=== PATIENT | male | born 1955 | race Two or more races ===

== ENCOUNTER 2019-09-13 13:38 | Inpatient (IN) | payer MEDICARE, MEDICAID ==
[~2019-09-13] VITALS: Ht 157.5 cm; Wt 81.2 kg
[2019-09-13] MEDS ORDERED: TAMS-13 PO (14:31)
[2019-09-13] MEDS ORDERED: LINA5TAB PO (14:31)
[2019-09-13] MEDS ORDERED: FURO40 PO (14:31)
[2019-09-13] MEDS ORDERED: TERA1CAP7 PO (14:31)
[2019-09-13] MEDS ORDERED: CALC30CA PO (14:31)
[2019-09-13] MEDS ORDERED: ATEN-188 PO (14:31)
[2019-09-13] MEDS ORDERED: AZIL40TA PO (14:31)
[2019-09-13] MEDS ORDERED: NITR0.4T50 SL (14:31)
[2019-09-13] MEDS ORDERED: GABA-531 PO (14:31)
[2019-09-13] MEDS ORDERED: NIFE60TA85 PO (14:31)
[2019-09-13] MEDS ORDERED: ASPI81TA39 PO (14:31)
[2019-09-13 14:52] LABS: GLUCOSE,POINT OF CARE 78 MG/DL (70-110)
[2019-09-13 15:04] LABS: BASOPHILS % (AUTO) 0.4 % (0.0-2.0); EOSINOPHILS % (AUTO) 4.1 % (1.0-6.0); HEMATOCRIT 32.9 % (41-53); HEMOGLOBIN 10.7 g/dL (13.5-17.5); LYMPHOCYTES # (AUTO) 1.4 K/uL (1.0-4.8); LYMPHOCYTES % (AUTO) 21.6 % (22.0-44.0); MEAN CORPUSCULAR HEMOGLOBIN 27.9 pg (26.0-34.0); MEAN CORPUSCULAR HGB CONC 32.6 G/dL (31.0-37.0); MEAN CORPUSCULAR VOLUME 86 fL (80-100); MONOCYTES # (AUTO) 0.5 K/uL (0.1-1.0); MONOCYTES % (AUTO) 8.3 % (2.0-9.0); NEUTROPHILS # (AUTO) 4.2 K/uL (1.8-7.7); NEUTROPHILS % (AUTO) 65.6 % (40.0-70.0); PLATELET COUNT (AUTO) 164 K/uL (150-450); RED BLOOD CELL COUNT(AUTO) 3.83 MIL/uL (4.50-5.90); RED CELL DISTRIBUTION WIDTH 14.7 % (11.5-14.5)
[2019-09-13 15:16] LABS: PROTHROMBIN TIME 9.8 SEC (9.4-11.6)
[2019-09-13 15:40] LABS: ALBUMIN 2.8 g/dL (3.4-5.0); BILIRUBIN,TOTAL 0.1 mg/dL (0.1-1.0); CALCIUM, TOTAL 8.7 mg/dL (8.8-10.5); CREATININE 6.16 mg/dL (0.60-1.30); POTASSIUM 4.8 mmol/L (3.5-5.1); TOTAL PROTEIN, SERUM 6.6 g/dL (6.4-8.2)
[2019-09-13] MEDS ORDERED: ACETAMINOPHEN 325 MG TABLET PO PRN (17:45)
[2019-09-13] MEDS ORDERED: ONDANSETRON HCL 4 MG/2 ML VIAL IVP PRN (17:45)
[2019-09-13] MEDS ORDERED: 0.9% SODIUM CHLORIDE 10 ML SYRINGE IVP PRN (17:45)
[2019-09-13 18:36] VITALS: BP 137/76
[2019-09-13 19:30] VITALS: BP 139/67
[2019-09-13] MEDS ORDERED: MAGNESIUM HYDROXIDE SUSPENSION 30 ML UDCUP PO PRN (20:00)
[2019-09-13] MEDS ORDERED: BISACODYL 10 MG RECTAL RECTAL SUPPOSITORY PR PRN (20:00)
[2019-09-13] MEDS: CITRIC ACID/SODIUM CITRATE 30 ML SOLUTION UDCUP PO SCH (20:25)
[2019-09-13] MEDS: DOCUSATE SODIUM 100 MG CAPSULE PO SCH (20:25)
[2019-09-13] MEDS ORDERED: INFLUENZA VIRUS VACCINE QVS 2019-20 (3YR+)/PF 60 MCG/0.5 ML SYRINGE IM ONE (23:00)
[2019-09-13] MEDS ORDERED: PNEUMOCOCCAL VACCINE POLYVALENT 0.5 ML VIAL [PPSV23] IM ONE (23:00)
[2019-09-14] VITALS (7 sets, daily range): BP systolic 103–158; BP diastolic 55–84
[2019-09-14] MEDS: HEPARIN SODIUM,PORCINE 5,000 UNITS/ML VIAL SQ SCH ×3 (00:13→15:30)
[2019-09-14 03:06] LABS: GLUCOMETER DEV NAME(LOC) 5N.1; GLUCOSE,POINT OF CARE 154 MG/DL (70-110)
[2019-09-14 07:09] LABS: HEMATOCRIT 34.1 % (41-53); HEMOGLOBIN 11.3 g/dL (13.5-17.5); MEAN CORPUSCULAR HEMOGLOBIN 28.1 pg (26.0-34.0); MEAN CORPUSCULAR VOLUME 85 fL (80-100); PLATELET COUNT (AUTO) 178 K/uL (150-450); RED BLOOD CELL COUNT(AUTO) 4.02 MIL/uL (4.50-5.90); RED CELL DISTRIBUTION WIDTH 14.4 % (11.5-14.5)
[2019-09-14 07:44] LABS: % IRON SATURATION 28.9 % (30-44)
[2019-09-14 07:45] LABS: ALBUMIN 2.8 g/dL (3.4-5.0); BILIRUBIN,TOTAL 0.2 mg/dL (0.1-1.0); CALCIUM, TOTAL 8.9 mg/dL (8.8-10.5); CREATININE 5.78 mg/dL (0.60-1.30); POTASSIUM 4.4 mmol/L (3.5-5.1); TOTAL PROTEIN, SERUM 6.8 g/dL (6.4-8.2)
[2019-09-14] MEDS: ASPIRIN 81 MG CHEWABLE TABLET PO SCH (08:03)
[2019-09-14] MEDS: FUROSEMIDE 40 MG TABLET PO SCH (08:04)
[2019-09-14] MEDS: NIFEdipine 60 MG ER TABLET PO SCH (08:04)
[2019-09-14] MEDS: PANTOPRAZOLE SODIUM 40 MG DR TABLET PO SCH (08:04)
[2019-09-14] MEDS: TAMSULOSIN HCL 0.4 MG CAPSULE PO SCH (08:04)
[2019-09-14] MEDS: ATENOLOL 100 MG TABLET PO SCH (08:04)
[2019-09-14] MEDS: GABAPENTIN 300 MG CAPSULE PO SCH (08:04)
[2019-09-14] MEDS: CITRIC ACID/SODIUM CITRATE 30 ML SOLUTION UDCUP PO SCH ×2 (08:04→20:21)
[2019-09-14] MEDS: DOCUSATE SODIUM 100 MG CAPSULE PO SCH ×2 (08:08→20:23)
[2019-09-14 08:22] LABS: BAND NEUTROPHILS % (MANUAL) 3 % (0-5); EOSINOPHILS % (MANUAL) 2 % (1-6); LYMPHOCYTES % (MANUAL) 37 % (22-44); MONOCYTES % (MANUAL) 2 % (2-9); SEGMENTED NEUTROPHILS % 56 % (40-70)
[2019-09-14] MEDS ORDERED: LinaGLIPtin 5 MG TABLET PO SCH (09:00)
[2019-09-14] MEDS: HYDROCODONE/ACETAMINOPHEN 5-325 MG TABLET PO PRN (20:22)
[2019-09-15] MEDS: HEPARIN SODIUM,PORCINE 5,000 UNITS/ML VIAL SQ SCH ×4 (00:46→23:22)
[2019-09-15] MEDS: ZOLPIDEM TARTRATE 5 MG TABLET PO PRN ×2 (00:46→21:03)
[2019-09-15 04:20] VITALS: BP 125/63
[2019-09-15 06:52] LABS: BASOPHILS % (AUTO) 0.6 % (0.0-2.0); EOSINOPHILS % (AUTO) 7.5 % (1.0-6.0); HEMOGLOBIN 11.1 g/dL (13.5-17.5); LYMPHOCYTES % (AUTO) 30.8 % (22.0-44.0); MEAN CORPUSCULAR HEMOGLOBIN 28.5 pg (26.0-34.0); MEAN CORPUSCULAR HGB CONC 33.5 G/dL (31.0-37.0); MEAN CORPUSCULAR VOLUME 85 fL (80-100); MONOCYTES # (AUTO) 0.6 K/uL (0.1-1.0); NEUTROPHILS # (AUTO) 3.3 K/uL (1.8-7.7); NEUTROPHILS % (AUTO) 51.1 % (40.0-70.0); PLATELET COUNT (AUTO) 166 K/uL (150-450); RED BLOOD CELL COUNT(AUTO) 3.88 MIL/uL (4.50-5.90); RED CELL DISTRIBUTION WIDTH 14.6 % (11.5-14.5)
[2019-09-15 07:14] LABS: CALCIUM, TOTAL 8.4 mg/dL (8.8-10.5); CREATININE 5.6 mg/dL (0.60-1.30); POTASSIUM 4.4 mmol/L (3.5-5.1)
[2019-09-15 07:26] VITALS: BP 136/74
[2019-09-15 07:45] LABS: MAGNESIUM 2.4 mg/dL (1.80-2.40); PHOSPHORUS 6.3 mg/dL (2.5-4.9)
[2019-09-15] MEDS: NIFEdipine 60 MG ER TABLET PO SCH (09:04)
[2019-09-15] MEDS: FUROSEMIDE 40 MG TABLET PO SCH (09:04)
[2019-09-15] MEDS: PANTOPRAZOLE SODIUM 40 MG DR TABLET PO SCH (09:04)
[2019-09-15] MEDS: TAMSULOSIN HCL 0.4 MG CAPSULE PO SCH (09:04)
[2019-09-15] MEDS: GABAPENTIN 300 MG CAPSULE PO SCH (09:04)
[2019-09-15] MEDS: CITRIC ACID/SODIUM CITRATE 30 ML SOLUTION UDCUP PO SCH ×2 (09:04→21:02)
[2019-09-15] MEDS: ATENOLOL 100 MG TABLET PO SCH (09:04)
[2019-09-15] MEDS: DOCUSATE SODIUM 100 MG CAPSULE PO SCH ×2 (09:04→21:00)
[2019-09-15] MEDS: ASPIRIN 81 MG CHEWABLE TABLET PO SCH (09:04)
[2019-09-15] MEDS: HYDROCODONE/ACETAMINOPHEN 5-325 MG TABLET PO PRN ×2 (12:12→21:03)
[2019-09-15] MEDS: CALCIUM ACETATE 667 MG CAPSULE PO SCH ×2 (12:12→18:16)
[2019-09-15 12:49] VITALS: BP 130/69
[2019-09-15 15:24] LABS: GLUCOMETER DEV NAME(LOC) 5S.1; GLUCOSE,POINT OF CARE 126 MG/DL (70-110)
[2019-09-15 20:32] VITALS: BP 119/71
[2019-09-15 23:32] LABS: GLUCOMETER DEV NAME(LOC) 5N.1; GLUCOSE,POINT OF CARE 181 MG/DL (70-110)
[2019-09-16] VITALS (12 sets, daily range): BP systolic 93–168; BP diastolic 38–71
[2019-09-16 07:21] LABS: BASOPHILS % (AUTO) 0.5 % (0.0-2.0); EOSINOPHILS % (AUTO) 7.2 % (1.0-6.0); HEMATOCRIT 29.8 % (41-53); HEMOGLOBIN 10.2 g/dL (13.5-17.5); LYMPHOCYTES # (AUTO) 1.7 K/uL (1.0-4.8); LYMPHOCYTES % (AUTO) 26.8 % (22.0-44.0); MEAN CORPUSCULAR HGB CONC 34.2 G/dL (31.0-37.0); MEAN CORPUSCULAR VOLUME 85 fL (80-100); MONOCYTES # (AUTO) 0.6 K/uL (0.1-1.0); MONOCYTES % (AUTO) 9.4 % (2.0-9.0); NEUTROPHILS # (AUTO) 3.6 K/uL (1.8-7.7); NEUTROPHILS % (AUTO) 56.1 % (40.0-70.0); PLATELET COUNT (AUTO) 155 K/uL (150-450); RED BLOOD CELL COUNT(AUTO) 3.51 MIL/uL (4.50-5.90); RED CELL DISTRIBUTION WIDTH 14.5 % (11.5-14.5)
[2019-09-16 07:32] LABS: CALCIUM, TOTAL 7.9 mg/dL (8.8-10.5); CREATININE 5.76 mg/dL (0.60-1.30); POTASSIUM 4.4 mmol/L (3.5-5.1)
[2019-09-16] MEDS: ASPIRIN 81 MG CHEWABLE TABLET PO SCH (07:59)
[2019-09-16] MEDS: HEPARIN SODIUM,PORCINE 5,000 UNITS/ML VIAL SQ SCH ×2 (07:59→13:00)
[2019-09-16] MEDS: CALCIUM ACETATE 667 MG CAPSULE PO SCH ×3 (08:00→18:00)
[2019-09-16] MEDS: DOCUSATE SODIUM 100 MG CAPSULE PO SCH ×2 (08:00→21:00)
[2019-09-16] MEDS: PANTOPRAZOLE SODIUM 40 MG DR TABLET PO SCH (08:07)
[2019-09-16] MEDS: GABAPENTIN 300 MG CAPSULE PO SCH (08:07)
[2019-09-16] MEDS: TAMSULOSIN HCL 0.4 MG CAPSULE PO SCH (08:07)
[2019-09-16] MEDS: NIFEdipine 60 MG ER TABLET PO SCH (08:07)
[2019-09-16] MEDS: FUROSEMIDE 40 MG TABLET PO SCH (08:07)
[2019-09-16] MEDS: ATENOLOL 100 MG TABLET PO SCH (08:07)
[2019-09-16] MEDS: CITRIC ACID/SODIUM CITRATE 30 ML SOLUTION UDCUP PO SCH ×2 (08:07→21:47)
[2019-09-16] MEDS ORDERED: MIDAZOLAM HCL 2 MG/2 ML VIAL ONE (10:10)
[2019-09-16] MEDS ORDERED: NALOXONE HCL 0.4 MG/ML VIAL ONE (10:10)
[2019-09-16] MEDS ORDERED: FentaNYL CITRATE-PF 100 MCG/2 ML VIAL ONE (10:10)
[2019-09-16] MEDS ORDERED: LIDOCAINE 1%/EPI 1:200,000/PF 10 ML VIAL ONE (10:11)
[2019-09-16] MEDS ORDERED: HEPARIN SODIUM,PORCINE 1,000 UNITS/ML 10 ML VIAL ONE (10:11)
[2019-09-16] MEDS ORDERED: FLUMAZENIL 0.1 MG/ML 5 ML VIAL IVP ONE (10:11)
[2019-09-16] MEDS ORDERED: HEPARIN SODIUM 1000 UNITS/NS 500 ML ONE (10:11)
[2019-09-16] MEDS ORDERED: SODIUM CHLORIDE 0.9% 250 ML IV ONE ×2 (11:00→16:50)
[2019-09-16] MEDS ORDERED: FentaNYL CITRATE-PF 100 MCG/2 ML VIAL IVP ONE (11:05)
[2019-09-16] MEDS ORDERED: MIDAZOLAM HCL 2 MG/2 ML VIAL IVP ONE (11:06)
[2019-09-16] MEDS: HYDROCODONE/ACETAMINOPHEN 5-325 MG TABLET PO PRN (12:28)
[2019-09-16 14:13] LABS: GLUCOMETER DEV NAME(LOC) 5S.1; GLUCOSE,POINT OF CARE 131 MG/DL (70-110)
[2019-09-16] MEDS ORDERED: SODIUM CHLORIDE 0.9% 1,000 ML ONE (14:48)
[2019-09-16] MEDS ORDERED: SODIUM CHLORIDE 0.9% 1,000 ML IV ONE (15:20)
[2019-09-16] MEDS ORDERED: LIDOCAINE/PF 1% 30 ML VIAL ONE (16:31)
[2019-09-16] MEDS ORDERED: SODIUM CHLORIDE 0.9% 10 ML ONE (16:31)
[2019-09-16] MEDS ORDERED: HEPARIN SODIUM,PORCINE 5,000 UNITS/ML VIAL ONE (16:49)
[2019-09-16] MEDS ORDERED: PROPOFOL 1000 MG/ISO-OSM 100 ML IV ONE (17:01)
[2019-09-16] MEDS ORDERED: HEPARIN SODIUM,PORCINE 1,000 UNITS/ML VIAL IVP ONE ×3 (17:26→22:00)
[2019-09-16 19:07] LABS: GLUCOMETER DEV NAME(LOC) 5N.1; GLUCOSE,POINT OF CARE 122 MG/DL (70-110)
[2019-09-17 00:18] VITALS: BP 137/78
[2019-09-17] MEDS: HEPARIN SODIUM,PORCINE 5,000 UNITS/ML VIAL SQ SCH ×3 (00:18→16:04)
[2019-09-17] MEDS: MORPHINE SULFATE 2 MG/ML SYRINGE IVP PRN ×4 (00:28→18:13)
[2019-09-17 01:52] LABS: GLUCOMETER DEV NAME(LOC) 5S.1; GLUCOSE,POINT OF CARE 144 MG/DL (70-110)
[2019-09-17 04:20] VITALS: BP 157/82
[2019-09-17] MEDS ORDERED: FentaNYL CITRATE-PF 100 MCG/2 ML VIAL IVP ONE (05:19)
[2019-09-17] MEDS ORDERED: MIDAZOLAM HCL 2 MG/2 ML VIAL IVP ONE (05:19)
[2019-09-17] MEDS ORDERED: HEPARIN SODIUM,PORCINE 1,000 UNITS/ML 10 ML VIAL IVP ONE (05:19)
[2019-09-17 07:10] VITALS: BP 109/61
[2019-09-17 07:26] LABS: BASOPHILS % (AUTO) 0.4 % (0.0-2.0); EOSINOPHILS % (AUTO) 5.3 % (1.0-6.0); HEMATOCRIT 33.9 % (41-53); HEMOGLOBIN 11.2 g/dL (13.5-17.5); LYMPHOCYTES # (AUTO) 1.1 K/uL (1.0-4.8); LYMPHOCYTES % (AUTO) 13.8 % (22.0-44.0); MEAN CORPUSCULAR HEMOGLOBIN 27.8 pg (26.0-34.0); MEAN CORPUSCULAR HGB CONC 32.9 G/dL (31.0-37.0); MEAN CORPUSCULAR VOLUME 85 fL (80-100); MONOCYTES # (AUTO) 0.7 K/uL (0.1-1.0); MONOCYTES % (AUTO) 8.9 % (2.0-9.0); NEUTROPHILS # (AUTO) 5.6 K/uL (1.8-7.7); NEUTROPHILS % (AUTO) 71.6 % (40.0-70.0); PLATELET COUNT (AUTO) 158 K/uL (150-450); RED BLOOD CELL COUNT(AUTO) 4.01 MIL/uL (4.50-5.90); RED CELL DISTRIBUTION WIDTH 14.9 % (11.5-14.5)
[2019-09-17 07:41] LABS: CALCIUM, TOTAL 7.7 mg/dL (8.8-10.5); CREATININE 4.56 mg/dL (0.60-1.30); POTASSIUM 4.5 mmol/L (3.5-5.1)
[2019-09-17] MEDS ORDERED: HYDROCODONE/ACETAMINOPHEN 10-325 MG TABLET PO PRN (08:00)
[2019-09-17] MEDS: ONDANSETRON HCL 4 MG/2 ML VIAL IVP PRN ×2 (08:13→18:12)
[2019-09-17] MEDS: CALCIUM ACETATE 667 MG CAPSULE PO SCH ×3 (09:05→18:13)
[2019-09-17] MEDS: CITRIC ACID/SODIUM CITRATE 30 ML SOLUTION UDCUP PO SCH (09:05)
[2019-09-17] MEDS: TAMSULOSIN HCL 0.4 MG CAPSULE PO SCH (09:05)
[2019-09-17] MEDS: PANTOPRAZOLE SODIUM 40 MG DR TABLET PO SCH (09:05)
[2019-09-17] MEDS: GABAPENTIN 300 MG CAPSULE PO SCH (09:05)
[2019-09-17] MEDS: DOCUSATE SODIUM 100 MG CAPSULE PO SCH (09:06)
[2019-09-17] MEDS: ATENOLOL 100 MG TABLET PO SCH (09:06)
[2019-09-17] MEDS: ASPIRIN 81 MG CHEWABLE TABLET PO SCH (09:06)
[2019-09-17] MEDS: FUROSEMIDE 40 MG TABLET PO SCH (09:06)
[2019-09-17] MEDS: NIFEdipine 60 MG ER TABLET PO SCH (09:06)
[2019-09-17 10:47] VITALS: BP 135/72
[2019-09-17 12:11] LABS: GLUCOMETER DEV NAME(LOC) 5N.1; GLUCOSE,POINT OF CARE 168 MG/DL (70-110)
[2019-09-17 15:11] VITALS: BP 101/57
[2019-09-18] VITALS (7 sets, daily range): BP systolic 115–151; BP diastolic 60–74
[2019-09-18] MEDS: HEPARIN SODIUM,PORCINE 5,000 UNITS/ML VIAL SQ SCH ×3 (00:23→21:00)
[2019-09-18] MEDS: DOCUSATE SODIUM 100 MG CAPSULE PO SCH ×3 (00:23→21:12)
[2019-09-18 00:25] LABS: GLUCOMETER DEV NAME(LOC) 5S.1; GLUCOSE,POINT OF CARE 109 MG/DL (70-110)
[2019-09-18] MEDS: PANTOPRAZOLE SODIUM 40 MG DR TABLET PO SCH (08:51)
[2019-09-18] MEDS: ACETAMINOPHEN 325 MG TABLET PO PRN ×2 (08:51→13:46)
[2019-09-18] MEDS: FUROSEMIDE 40 MG TABLET PO SCH (08:52)
[2019-09-18] MEDS: TAMSULOSIN HCL 0.4 MG CAPSULE PO SCH (08:52)
[2019-09-18] MEDS: ASPIRIN 81 MG CHEWABLE TABLET PO SCH (08:52)
[2019-09-18] MEDS: GABAPENTIN 300 MG CAPSULE PO SCH (08:52)
[2019-09-18] MEDS: CALCIUM ACETATE 667 MG CAPSULE PO SCH ×3 (08:52→18:00)
[2019-09-18 09:06] LABS: ALBUMIN 2.6 g/dL (3.4-5.0); BILIRUBIN,TOTAL 0.3 mg/dL (0.1-1.0); CALCIUM, TOTAL 8.3 mg/dL (8.8-10.5); CREATININE 3.57 mg/dL (0.60-1.30); POTASSIUM 4.3 mmol/L (3.5-5.1); TOTAL PROTEIN, SERUM 6.8 g/dL (6.4-8.2)
[2019-09-18] MEDS: ATENOLOL 100 MG TABLET PO SCH (11:04)
[2019-09-18] MEDS: NIFEdipine 60 MG ER TABLET PO SCH (11:04)
[2019-09-18 12:21] LABS: GLUCOMETER DEV NAME(LOC) 5N.1; GLUCOSE,POINT OF CARE 169 MG/DL (70-110)
[2019-09-18] MEDS ORDERED: DiphenhydrAMINE HCL 50 MG/ML VIAL IVP PRN (18:00)
[2019-09-18] MEDS ORDERED: HEPARIN SODIUM,PORCINE 1,000 UNITS/ML VIAL IVP ONE ×3 (18:00→18:21)
[2019-09-19] VITALS (7 sets, daily range): BP systolic 106–135; BP diastolic 50–69
[2019-09-19] MEDS: ACETAMINOPHEN 325 MG TABLET PO PRN ×3 (03:22→20:40)
[2019-09-19] MEDS: FUROSEMIDE 40 MG TABLET PO SCH (08:55)
[2019-09-19] MEDS: ATENOLOL 100 MG TABLET PO SCH (08:55)
[2019-09-19] MEDS: PANTOPRAZOLE SODIUM 40 MG DR TABLET PO SCH (08:55)
[2019-09-19] MEDS: CALCIUM ACETATE 667 MG CAPSULE PO SCH ×3 (08:55→18:19)
[2019-09-19] MEDS: TAMSULOSIN HCL 0.4 MG CAPSULE PO SCH (08:55)
[2019-09-19] MEDS: NIFEdipine 60 MG ER TABLET PO SCH (08:56)
[2019-09-19] MEDS: ASPIRIN 81 MG CHEWABLE TABLET PO SCH (08:56)
[2019-09-19] MEDS: HEPARIN SODIUM,PORCINE 5,000 UNITS/ML VIAL SQ SCH ×2 (08:57→20:33)
[2019-09-19] MEDS: DOCUSATE SODIUM 100 MG CAPSULE PO SCH ×2 (09:00→20:33)
[2019-09-19 09:01] LABS: GLUCOMETER DEV NAME(LOC) 5N.1; GLUCOSE,POINT OF CARE 177 MG/DL (70-110)
[2019-09-19] MEDS ORDERED: REGADENOSON 0.4 MG/5 ML PF SYRINGE IVP ONE ×2 (10:05→15:39)
[2019-09-19] MEDS ORDERED: SESTAMIBI TC99M/UD ISOTOPE 1 EA INJ INJ ONE ×2 (10:05→12:15)
[2019-09-19] MEDS ORDERED: LIDOCAINE/PF 1% 5 ML VIAL ONE (14:38)
[2019-09-19 15:01] LABS: GLUCOMETER DEV NAME(LOC) 5N.1; GLUCOSE,POINT OF CARE 198 MG/DL (70-110)
[2019-09-19] MEDS ORDERED: DiphenhydrAMINE HCL 50 MG/ML VIAL IM ONE (18:26)
[2019-09-19] MEDS ORDERED: HEPARIN SODIUM,PORCINE 1,000 UNITS/ML VIAL IVP ONE (18:26)
[2019-09-20 00:04] VITALS: BP 105/52
[2019-09-20] MEDS: ACETAMINOPHEN 325 MG TABLET PO PRN (01:59)
[2019-09-20 03:02] LABS: GLUCOMETER DEV NAME(LOC) 5S.1; GLUCOSE,POINT OF CARE 153 MG/DL (70-110)
[2019-09-20 05:08] VITALS: BP 114/60
[2019-09-20 07:34] VITALS: BP 121/69
[2019-09-20] MEDS: TAMSULOSIN HCL 0.4 MG CAPSULE PO SCH (08:59)
[2019-09-20] MEDS: PANTOPRAZOLE SODIUM 40 MG DR TABLET PO SCH (08:59)
[2019-09-20] MEDS: NIFEdipine 60 MG ER TABLET PO SCH (08:59)
[2019-09-20] MEDS: CALCIUM ACETATE 667 MG CAPSULE PO SCH ×2 (08:59→12:00)
[2019-09-20] MEDS: FUROSEMIDE 40 MG TABLET PO SCH (08:59)
[2019-09-20] MEDS: HEPARIN SODIUM,PORCINE 5,000 UNITS/ML VIAL SQ SCH (08:59)
[2019-09-20] MEDS: DOCUSATE SODIUM 100 MG CAPSULE PO SCH (08:59)
[2019-09-20] MEDS: ATENOLOL 100 MG TABLET PO SCH (08:59)
[2019-09-20] MEDS: ASPIRIN 81 MG CHEWABLE TABLET PO SCH (08:59)
[2019-09-20 11:09] VITALS: BP 134/75
[2019-09-20] MEDS ORDERED: HEPARIN SODIUM,PORCINE 1,000 UNITS/ML VIAL IVP ONE ×3 (14:30→15:39)
[2019-09-21 04:01] LABS: GLUCOMETER DEV NAME(LOC) 5N.1; GLUCOSE,POINT OF CARE 168 MG/DL (70-110)
== END 2019-09-20 15:40 | disposition home or self-care (01) | DRG 264 ==
LOC: EMS 13:39 → 5N 17:44
PROVIDERS: ADMIT Internal Medicine; ATTEND Internal Medicine
PROC: 0JH63XZ Insertion of Tunneled Vascular Access Device into Chest Subcutaneous Tissue and Fascia, Percutaneous Approach (ICD-10-PCS; 2019-09-16)
PROC: 02HV33Z Insertion of Infusion Device into Superior Vena Cava, Percutaneous Approach (ICD-10-PCS; 2019-09-16)
PROC: B5181ZA Fluoroscopy of Superior Vena Cava using Low Osmolar Contrast, Guidance (ICD-10-PCS; 2019-09-16)
PROC: B548ZZA Ultrasonography of Superior Vena Cava, Guidance (ICD-10-PCS; 2019-09-16)
PROC: 5A1D70Z Performance of Urinary Filtration, Intermittent, Less than 6 Hours Per Day (ICD-10-PCS; 2019-09-16)
PROC: 03180JD Bypass Left Brachial Artery to Upper Arm Vein with Synthetic Substitute, Open Approach (ICD-10-PCS; principal; 2019-09-16 16:00)
PROC: 5A1D70Z Performance of Urinary Filtration, Intermittent, Less than 6 Hours Per Day (ICD-10-PCS; 2019-09-17)
PROC: 5A1D70Z Performance of Urinary Filtration, Intermittent, Less than 6 Hours Per Day (ICD-10-PCS; 2019-09-18)
PROC: 5A1D70Z Performance of Urinary Filtration, Intermittent, Less than 6 Hours Per Day (ICD-10-PCS; 2019-09-20)
DX: I13.2 Hypertensive heart and chronic kidney disease with heart failure and with stage 5 chronic kidney disease, or end stage renal disease (principal); N18.6 End stage renal disease; G93.41 Metabolic encephalopathy; E87.2 Acidosis; I50.22 Chronic systolic (congestive) heart failure; E11.22 Type 2 diabetes mellitus with diabetic chronic kidney disease; N40.0 Benign prostatic hyperplasia without lower urinary tract symptoms; E78.5 Hyperlipidemia, unspecified; E83.39 Other disorders of phosphorus metabolism; E11.40 Type 2 diabetes mellitus with diabetic neuropathy, unspecified; E11.649 Type 2 diabetes mellitus with hypoglycemia without coma; E78.00 Pure hypercholesterolemia, unspecified; E11.319 Type 2 diabetes mellitus with unspecified diabetic retinopathy without macular edema; D63.1 Anemia in chronic kidney disease; I25.5 Ischemic cardiomyopathy; E66.9 Obesity, unspecified; I20.9 Angina pectoris, unspecified; Z91.19 Patient's noncompliance with other medical treatment and regimen; I25.2 Old myocardial infarction; Z87.891 Personal history of nicotine dependence; Z82.49 Family history of ischemic heart disease and other diseases of the circulatory system; Z68.32 Body mass index [BMI] 32.0-32.9, adult; Z99.2 Dependence on renal dialysis
CPT/HCPCS: 36245; 36561; 76770; 76937; 78452; 82728; 83036; 83540; 83550; 83735; 83970; 84100; 85007; 87340; 90935; 93005; 93017; 93306; 93970; A9500; J0690; J1200; J1644; J2001; J2250; J2270; J2310; J2405; J2704; J2785; J3010; J3490; J7030; J7050